=== PATIENT | male | born 1975 | race Caucasian/White ===

== ENCOUNTER 2017-12-09 14:39 | Emergency (ER) | payer SELFPAY ==
[2017-12-09] MEDS ORDERED: SULFAMETH/TRIMETH DS 800/160 MG TABLET PO STA (14:55)
[2017-12-09] MEDS ORDERED: TETANUS/DIPHTHERIA/PERTUSSIS 0.5 ML SYRINGE IM ONE (14:55)
[2017-12-09] MEDS ORDERED: cephALEXin 250 MG CAPSULE PO STA (14:55)
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
[2017-12-09 15:10] VITALS: BP 161/121
== END 2017-12-09 15:09 | disposition home or self-care (01) ==
LOC: ED 14:39
DX: S71.132A Puncture wound without foreign body, left thigh, initial encounter (principal); L03.116 Cellulitis of left lower limb; X99.9XXA Assault by unspecified sharp object, initial encounter; R03.0 Elevated blood-pressure reading, without diagnosis of hypertension
CPT/HCPCS: 87070; 87205; 90471; 90715; 99283; A9270

== ENCOUNTER 2019-05-18 10:08 | Emergency (ER) | payer BC ==
--- NOTE | 2019-05-18 10:44 | ED Physician Documentation ---
PD HPI MALE - Stated complaint Stated Complaint: MALE - Chief complaint Chief Complaint: General - History obtained from History obtained from: Patient - History of Present Illness Timing - onset: How many weeks ago (4) Timing - duration: Weeks (had unprotected sex 4 weeks ago and noted some redness and irritation/itching initially at foreskin and glans the couple days after. This has persisted with some redness/itching, but then has had some increased redness with wet/crusting dorsum of shaft for couple of weeks. Now 2 days of increased swelling of left shaft of penis and lump feeling left inquinal area.) Timing - details: Gradual onset, Still present Associated symptoms: No: Dysuria, Urinary frequency, Discharge PD HPI MALE CONTRIB FACTORS: Sexually active Similar symptoms before: Has not had sx before Review of Systems Constitutional: denies: Fever, Chills GI: denies: Abdominal Pain, Nausea, Vomiting : denies: Dysuria, Discharge Skin: reports: Rash PD PAST MEDICAL HISTORY - Past Medical History : None - Past Surgical History Past Surgical History: No - Present Medications Home Medications: Ambulatory Orders Medication Instructions Recorded Confirmed Doxycycline Monohydrate 100 mg PO BID #14 tablet 05/18/19 Nystatin/Triamcin 1 applic TP TID #15 cream..g. 05/18/19 [Nystatin-Triamcinolone Cream] - Allergies Allergies/Adverse Reactions: Allergies Allergy/AdvReac Type Severity Reaction Status Date / Time No Known Drug Allergies Allergy Verified 05/18/19 10:16 - Social History Does the pt smoke?: Yes Smoking Status: Current every day smoker Does the pt drink ETOH?: No Does the pt have substance abuse?: No - Immunizations Immunizations are current?: No - POLST Patient has POLST: No PD ED PE NORMAL - Vitals Vital signs reviewed: Yes - General General: Alert and oriented X 3, No acute distress, Well developed/nourished - Abdomen Abdomen: Soft, Non tender - Male Male : Other (testicles and scrotum normal. The penis has some superficial redness and skin breakdown along base of glans and at some of the foreskin folds. Mild redness with leading edge in crural areas both sides as well. There is some honey crusting and redness at the left dorsal area of the glans base c/w secondary bacterial infection. Mild left inguinal adenopathy that is tender. No abscess. No hernia. ) - Derm Derm: Normal color, Warm and dry - Neuro Neuro: Alert and oriented X 3, No motor deficit, Normal speech Results - Vitals Vitals: Vital Signs - 24 hr 05/18/19 05/18/19 10:13 11:35 Temperature 37.4 C Heart Rate 125 H 78 Respiratory 20 18 Rate Blood Pressure 161/87 H 144/87 H O2 Saturation 100 100 Oxygen O2 Source Room air PD MEDICAL DECISION MAKING - ED course Complexity details: considered differential (looks like underlying candidal balanitis with then some superficial secondary infection now. Does not look herpetic. No meatal discharge. ), d/w patient Departure - Departure Disposition: 01 Home, Self Care Clinical Impression: Candidal balanitis, Wound infection Condition: Stable Record reviewed to determine appropriate education?: Yes Instructions: ED Balanitis Prescriptions: Doxycycline Monohydrate 100 mg PO BID #14 tablet Nystatin/Triamcin [Nystatin-Triamcinolone Cream] 1 applic TP TID #15 cream..g. Comments: This looks likely to be a yeast infection around the glans and foreskin which then got infected bacterially. Treated with antifungal nystatin topically and will also use doxycycline oral antibiotic. I would anticipate improvement over the next several days or so as the infection clears. We did do test to see if there is any STD present and that will result in a day or 2. Does not have that appearance at this point Discharge Date/Time: 05/18/19 11:38
[2019-05-18] MEDS ORDERED: DOXYCYCLINE 100 MG TABLET PO STA (11:14)
[2019-05-18] MEDS ORDERED: FLUCONAZOLE 100 MG TABLET PO STA (11:14)
[2019-05-18 11:36] VITALS: BP 144/87
[2019-05-18 21:19] LABS: TRICHOMONAS VAGINALIS DNA NEGATIVE (NEGATIVE)
== END 2019-05-18 11:38 | disposition home or self-care (01) ==
LOC: ED 10:08
DX: B37.42 Candidal balanitis (principal); F17.200 Nicotine dependence, unspecified, uncomplicated
CPT/HCPCS: 87491; 87591; 87661; 99283; A9270